=== PATIENT | male | born 2000 | race Caucasian/White ===

== ENCOUNTER 2018-01-19 11:01 | Emergency (ER) | payer MEDICAID ==
[~2018-01-19] VITALS: Ht 165.1 cm; Wt 56.7 kg
[2018-01-19 11:04] VITALS: BP 134/75
--- NOTE | 2018-01-19 11:15 | NUR ---
17 YO M BIB SELF W/ C/O VOMITING AND DIARRHEA X 3 DAYS. PT REPORTS BEING UNABLE TO EAT, ONLY ABLE TO KEEP DOWN WATER. TOOK NYQUIL LAST NIGHT, NOTHING FOR UPSET STOMACH/DIARHEA. PT REPORTS 8/10 EPIGASTRIC PAIN. SKIN IS PINK/WARM/DRY; AAOX4 WITH EVEN AND STEADY GAIT; LUNGS CLEAR BL; HR EVEN AND REGULAR; PT DENIES ANY FEVER, CP, SOB, OR COUGH AT THIS TIME; VSS; PATIENT POSITIONED FOR COMFORT; HOB ELEVATED; BEDRAILS UP X2; BED DOWN. ER MD MADE AWARE OF PT STATUS.
[2018-01-19] MEDS ORDERED: ONDANSETRON 4 MG ODT PO ONE (12:25)
[2018-01-19 12:35] VITALS: BP 118/71
--- NOTE | 2018-01-19 12:35 | NUR ---
Patient discharged with v/s stable. Written and verbal after care instructions given and explained. Patient alert, oriented and verbalized understanding of instructions. Ambulatory with steady gait. All questions addressed prior to discharge. ID band removed. Patient advised to follow up with PMD. Rx of ZOFRAN, LOMOTIL given. Patient educated on indication of medication including possible reaction and side effects. Opportunity to ask questions provided and answered.
== END 2018-01-19 12:35 | disposition home or self-care (01) ==
LOC: MED 11:01
DX: R11.2 Nausea with vomiting, unspecified (principal); R19.7 Diarrhea, unspecified; R10.13 Epigastric pain; J45.909 Unspecified asthma, uncomplicated; F17.200 Nicotine dependence, unspecified, uncomplicated
CPT/HCPCS: 99283; Q0162